=== PATIENT | male | born 1960 | race Caucasian/White ===

== ENCOUNTER 2023-10-19 16:36 | Inpatient (IN) | payer OTHER, MEDICAID ==
[~2023-10-19] VITALS: Ht 180.3 cm; Wt 141.5 kg
[2023-10-19 16:40] VITALS: BP_SYST 153; PULSE 71; RESP 19; TEMP 97.2; O2SAT 96
[2023-10-19 17:41] LABS: BASOPHILS % (AUTO) 0.3 % (0.0-2.0); EOSINOPHILS # (AUTO) 0.4 K/uL (0.0-0.4); EOSINOPHILS % (AUTO) 3.4 % (0.0-4.0); HEMATOCRIT 27.8 % (36-54); HEMOGLOBIN 9.2 g/dL (14.0-18.0); LYMPHOCYTES # (AUTO) 1.8 K/uL (1.0-5.5); LYMPHOCYTES % (AUTO) 15.5 % (20.5-51.5); MEAN CORPUSCULAR HEMOGLOBIN 28 pg (27-31); MEAN CORPUSCULAR HGB CONC 33 % (32-36); MEAN CORPUSCULAR VOLUME 84 fL (79.0-98.0); MONOCYTES # (AUTO) 0.6 K/uL (0.0-1.0); MONOCYTES % (AUTO) 5.1 % (1.7-9.3); NEUTROPHILS # (AUTO) 8.8 K/uL (1.8-7.7); NEUTROPHILS % (AUTO) 75.7 % (40.0-70.0); PLATELET COUNT (AUTO) 142 K/uL (130-430); RED BLOOD CELL COUNT(AUTO) 3.33 MIL/uL (4.2-6.2); RED CELL DISTRIBUTION WIDTH 16.8 % (9.0-15.0); WHITE BLOOD COUNT (AUTO) 11.7 K/uL (4.8-10.8)
[2023-10-19 17:55] LABS: ALANINE AMINOTRANSFERASE 24 U/L (12-78); ALBUMIN 3.2 g/dL (3.4-4.8); ANION GAP 11 (5-15); ASPARTATE AMINOTRANSFERASE 14 U/L (10-37); CALCIUM 8.9 mg/dL (8.4-11.0); CARBON DIOXIDE 19 mmol/L (23-29); CHLORIDE 109 mmol/L (98-107); CREATININE 1.94 mg/dL (0.55-1.30); GFR AFRICAN AMERICAN 45 mL/min (>90); GLUCOSE 148 mg/dL (74-106); POTASSIUM 4.5 mmol/L (3.5-5.1); SODIUM SERUM 139 mmol/L (136-145); TOTAL BILIRUBIN 0.3 mg/dL (0.0-1.0); TOTAL PROTEIN, SERUM 7.1 g/dL (6.4-8.3); UREA NITROGEN, BLOOD 32 mg/dL (8-21)
[2023-10-19 17:58] LABS: BILIRUBIN,DIRECT 0.1 mg/dL (0.0-0.3)
[2023-10-19 18:02] LABS: GFR NON AFRICAN-AMERICAN 37 mL/min (>90)
[2023-10-19 19:54] LABS: BILIRUBIN,URINE NEGATIVE (NEGATIVE); BLOOD, URINE NEGATIVE (NEGATIVE); CLARITY/URINE CLEAR (CLEAR); COLOR,URINE YELLOW (YELLOW); GLUCOSE,URINE 2+ (NEGATIVE); KETONES,URINE NEGATIVE (NEGATIVE); LEUKOCYTE ESTERASE ,URINE NEGATIVE (NEGATIVE); NITRITE, URINE NEGATIVE (NEGATIVE); PROTEIN URINE 1+ (NEGATIVE); UROBILINOGEN,URINE 0.2 (0.2-1.0)
[2023-10-19 20:40] LABS: BACTERIA,URINE None Seen /HPF (None Seen)
[2023-10-19] MEDS: HYDROcodone/ACETAMIN 10-325 MG TAB PO ONE (21:14)
[2023-10-19] MEDS ORDERED: LORazepam 2 MG/ML VIAL IVP PRN (21:15)
[2023-10-19] MEDS ORDERED: ONDANSETRON HCL 4 MG/2 ML VIAL IVP PRN (21:15)
[2023-10-19] MEDS ORDERED: ACETAMINOPHEN 325 MG TABLET PO PRN (21:15)
[2023-10-19] MEDS ORDERED: DEXTROSE 50% JECT 50 ML DISP.SYRIN IVP PRN (21:15)
[2023-10-19] MEDS ORDERED: HYDROcodone/ACETAMIN 5-325 MG TAB (NORCO/ VICODIN) PO PRN (21:15)
[2023-10-19] MEDS ORDERED: hydrALAZINE HCL 25 MG TABLET PO PRN (22:00)
[2023-10-19] MEDS ORDERED: ZOLPIDEM TARTRATE 5 MG TABLET PO PRN (22:00)
[2023-10-20] MEDS ORDERED: DAPA10TA7 (04:21)
[2023-10-20] MEDS ORDERED: ATEN50TA PO (04:21)
[2023-10-20] MEDS ORDERED: LACT10SO7 PO (04:21)
[2023-10-20] MEDS ORDERED: HYDR25TA86 PO (04:21)
[2023-10-20] MEDS ORDERED: EPOE200011 SUBCUT (04:21)
[2023-10-20] MEDS ORDERED: INSU100V46 SUBCUT (04:21)
[2023-10-20] MEDS ORDERED: CLOP75TA32 PO (04:21)
[2023-10-20] MEDS ORDERED: HYDR-4284 PO (04:21)
[2023-10-20] MEDS: HYDROcodone/ACETAMIN 10-325 MG TAB PO PRN (06:53)
[2023-10-20 07:40] LABS: BASOPHILS # (AUTO) 0.1 K/uL (0.0-0.2); BASOPHILS % (AUTO) 0.7 % (0.0-2.0); EOSINOPHILS # (AUTO) 0.4 K/uL (0.0-0.4); EOSINOPHILS % (AUTO) 4.2 % (0.0-4.0); HEMATOCRIT 27.9 % (36-54); LYMPHOCYTES # (AUTO) 1.7 K/uL (1.0-5.5); LYMPHOCYTES % (AUTO) 18.1 % (20.5-51.5); MEAN CORPUSCULAR HEMOGLOBIN 27 pg (27-31); MEAN CORPUSCULAR HGB CONC 32 % (32-36); MEAN CORPUSCULAR VOLUME 85 fL (79.0-98.0); MONOCYTES # (AUTO) 0.5 K/uL (0.0-1.0); NEUTROPHILS # (AUTO) 6.8 K/uL (1.8-7.7); PLATELET COUNT (AUTO) 135 K/uL (130-430); RED CELL DISTRIBUTION WIDTH 16.4 % (9.0-15.0); WHITE BLOOD COUNT (AUTO) 9.4 K/uL (4.8-10.8)
[2023-10-20 07:57] LABS: CALCIUM 8.8 mg/dL (8.4-11.0); CREATININE 1.96 mg/dL (0.55-1.30); POTASSIUM 4.5 mmol/L (3.5-5.1)
[2023-10-20 07:59] LABS: INR 1.1 (0.80-1.20); PROTHROMBIN TIME 10.9 SECS (9.5-12.5)
[2023-10-20] MEDS ORDERED: INSULIN Lispro 100 UNITS/ML, 3 ML VIAL (humaLOG) ONE ×2 (08:08→13:02)
[2023-10-20] MEDS: ATENOLOL 50 MG TABLET (TENORMIN) PO SCH (08:11)
[2023-10-20] MEDS: INSULIN LISPRO SLIDING SCALE 100 UNITS/ML, 3 ML VIAL (humaLOG) SUBCUT PRN (08:13)
[2023-10-20] MEDS ORDERED: ACETAMINOPHEN 325 MG TABLET PO PRN (09:15)
[2023-10-20] MEDS ORDERED: DOCUSATE SODIUM 100 MG CAPSULE PO PRN (09:15)
[2023-10-20] MEDS ORDERED: POTASSIUM CHLORIDE 20 MEQ TABLET.ER PO PRN (09:15)
[2023-10-20] MEDS ORDERED: ONDANSETRON HCL 4 MG/2 ML VIAL IVP PRN (09:15)
[2023-10-20] MEDS ORDERED: MORPHINE 2 MG/ML INJ. SYRINGE IVP PRN ×2 (09:15)
[2023-10-20] MEDS ORDERED: ZOLPIDEM TARTRATE 5 MG TABLET PO PRN (09:15)
[2023-10-20] MEDS ORDERED: NALOXONE HCL 0.4 MG/ML AMP (NARCAN) IVP PRN ×2 (09:15)
[2023-10-20] MEDS ORDERED: MAGNESIUM SULFATE 50 ML IV PRN (09:15)
[2023-10-20] MEDS ORDERED: LORazepam 2 MG/ML VIAL IVP PRN (09:15)
[2023-10-20] MEDS ORDERED: MUPIROCIN 2% TOPICAL OINTMENT 22 GM NS PRN (09:15)
[2023-10-20] MEDS: CLOPIDOGREL BISULFATE 75 MG TABLET PO ONE (11:46)
[2023-10-20 15:25] VITALS: O2SAT 99
[2023-10-20 17:20] VITALS: BP_SYST 123; PULSE 61; RESP 16; TEMP 96
[2023-10-20] MEDS: prednisoLONE 15 MG/5 ML UDC PO ONE (18:36)
[2023-10-20] MEDS: IMMUNE GLOBULIN (IVIG) 400 ML IV SCH (18:42)
[2023-10-20 20:00] VITALS: BP_SYST 126; PULSE 61; RESP 18; TEMP 97.5; O2SAT 96
[2023-10-20] MEDS ORDERED: HEPARIN SODIUM,PORCINE 5,000 UNITS/ML VIAL SUBCUT SCH (21:00)
[2023-10-20] MEDS: APIXABAN 2.5 MG TABLET PO SCH (21:50)
[2023-10-20] MEDS: hydrALAZINE HCL 25 MG TABLET PO SCH (21:52)
[2023-10-21] VITALS: BP_SYST 135; PULSE 67; RESP 18; TEMP 98.5
[2023-10-21 05:03] LABS: BASOPHILS % (AUTO) 0.5 % (0.0-2.0); EOSINOPHILS % (AUTO) 0.1 % (0.0-4.0); HEMATOCRIT 30.4 % (36-54); HEMOGLOBIN 9.7 g/dL (14.0-18.0); LYMPHOCYTES # (AUTO) 0.7 K/uL (1.0-5.5); LYMPHOCYTES % (AUTO) 7.7 % (20.5-51.5); MEAN CORPUSCULAR HEMOGLOBIN 27 pg (27-31); MEAN CORPUSCULAR HGB CONC 32 % (32-36); MEAN CORPUSCULAR VOLUME 85 fL (79.0-98.0); MONOCYTES # (AUTO) 0.1 K/uL (0.0-1.0); MONOCYTES % (AUTO) 1.4 % (1.7-9.3); NEUTROPHILS % (AUTO) 90.3 % (40.0-70.0); PLATELET COUNT (AUTO) 143 K/uL (130-430); RED BLOOD CELL COUNT(AUTO) 3.57 MIL/uL (4.2-6.2); RED CELL DISTRIBUTION WIDTH 16.7 % (9.0-15.0); WHITE BLOOD COUNT (AUTO) 8.8 K/uL (4.8-10.8)
[2023-10-21 05:44] LABS: CALCIUM 8.4 mg/dL (8.4-11.0); CREATININE 2.2 mg/dL (0.55-1.30); POTASSIUM 4.7 mmol/L (3.5-5.1)
[2023-10-21 06:11] LABS: TOTAL IRON BIND. CAPACITY 125 ug/dL (250-450)
[2023-10-21 08:00] VITALS: BP_SYST 119; PULSE 66; RESP 18; TEMP 97.8; O2SAT 96; O2SAT 99
[2023-10-21] MEDS ORDERED: CLOPIDOGREL BISULFATE 75 MG TABLET PO SCH (09:00)
[2023-10-21] MEDS: INSULIN GLARGINE 100 UNITS/ML, 10 ML VIAL SUBCUT SCH (09:41)
[2023-10-21] MEDS: predniSONE 20 MG TABLET PO SCH (09:46)
[2023-10-21 12:14] VITALS: BP_SYST 128; PULSE 68; RESP 17; TEMP 98; O2SAT 98
[2023-10-21 16:24] VITALS: BP_SYST 115; PULSE 67; RESP 18; TEMP 97.7; O2SAT 96
[2023-10-21 20:00] VITALS: BP_SYST 138; PULSE 62; RESP 18; TEMP 98; O2SAT 97
[2023-10-21] MEDS: IMMUNE GLOBULIN (IVIG) 400 ML IV SCH (22:54)
[2023-10-22] VITALS: BP_SYST 118; PULSE 61; RESP 18; TEMP 97.6; O2SAT 100
[2023-10-22 08:00] VITALS: BP_SYST 144; PULSE 82; RESP 12; TEMP 98.6; O2SAT 97
[2023-10-22] MEDS: FOLIC ACID 1 MG TABLET PO SCH (08:49)
[2023-10-22 09:22] VITALS: O2SAT 98
[2023-10-22 11:13] VITALS: BP_SYST 141; PULSE 77; RESP 15; TEMP 97.9; O2SAT 93
[2023-10-22 11:33] LABS: BASOPHILS % (AUTO) 0.5 % (0.0-2.0); EOSINOPHILS # (AUTO) 0.1 K/uL (0.0-0.4); EOSINOPHILS % (AUTO) 1.3 % (0.0-4.0); HEMATOCRIT 28.4 % (36-54); HEMOGLOBIN 9.6 g/dL (14.0-18.0); LYMPHOCYTES # (AUTO) 2.2 K/uL (1.0-5.5); LYMPHOCYTES % (AUTO) 24.7 % (20.5-51.5); MEAN CORPUSCULAR HEMOGLOBIN 28 pg (27-31); MEAN CORPUSCULAR HGB CONC 34 % (32-36); MEAN CORPUSCULAR VOLUME 83 fL (79.0-98.0); MONOCYTES # (AUTO) 0.4 K/uL (0.0-1.0); MONOCYTES % (AUTO) 4.8 % (1.7-9.3); NEUTROPHILS % (AUTO) 68.7 % (40.0-70.0); PLATELET COUNT (AUTO) 147 K/uL (130-430); RED BLOOD CELL COUNT(AUTO) 3.41 MIL/uL (4.2-6.2); RED CELL DISTRIBUTION WIDTH 16.8 % (9.0-15.0); WHITE BLOOD COUNT (AUTO) 8.8 K/uL (4.8-10.8)
[2023-10-22 12:25] LABS: CALCIUM 8.6 mg/dL (8.4-11.0); CREATININE 1.73 mg/dL (0.55-1.30); POTASSIUM 4.3 mmol/L (3.5-5.1)
[2023-10-22 15:12] VITALS: BP_SYST 154; PULSE 60; RESP 16; TEMP 97.8; O2SAT 99
[2023-10-22 20:00] VITALS: BP_SYST 138; PULSE 65; RESP 16; TEMP 97.3; O2SAT 97
[2023-10-23 00:14] VITALS: BP_SYST 136; PULSE 69; RESP 14; TEMP 97.8; O2SAT 96
[2023-10-23 07:15] LABS: BASOPHILS # (AUTO) 0.1 K/uL (0.0-0.2); BASOPHILS % (AUTO) 0.7 % (0.0-2.0); EOSINOPHILS # (AUTO) 0.1 K/uL (0.0-0.4); EOSINOPHILS % (AUTO) 1.6 % (0.0-4.0); HEMATOCRIT 27.2 % (36-54); HEMOGLOBIN 9.2 g/dL (14.0-18.0); LYMPHOCYTES # (AUTO) 2.2 K/uL (1.0-5.5); MEAN CORPUSCULAR HEMOGLOBIN 28 pg (27-31); MEAN CORPUSCULAR HGB CONC 34 % (32-36); MEAN CORPUSCULAR VOLUME 83 fL (79.0-98.0); MONOCYTES # (AUTO) 0.5 K/uL (0.0-1.0); MONOCYTES % (AUTO) 5.9 % (1.7-9.3); NEUTROPHILS # (AUTO) 6.2 K/uL (1.8-7.7); NEUTROPHILS % (AUTO) 67.8 % (40.0-70.0); PLATELET COUNT (AUTO) 163 K/uL (130-430); RED BLOOD CELL COUNT(AUTO) 3.27 MIL/uL (4.2-6.2); RED CELL DISTRIBUTION WIDTH 16.3 % (9.0-15.0); WHITE BLOOD COUNT (AUTO) 9.1 K/uL (4.8-10.8)
[2023-10-23 07:19] LABS: CALCIUM 8.4 mg/dL (8.4-11.0); CREATININE 1.88 mg/dL (0.55-1.30); POTASSIUM 4.6 mmol/L (3.5-5.1)
[2023-10-23 08:27] VITALS: BP_SYST 132; PULSE 61; RESP 16; TEMP 97.1; O2SAT 99
[2023-10-23 10:30] VITALS: O2SAT 99
[2023-10-23 12:44] VITALS: BP_SYST 135; PULSE 94; RESP 15; TEMP 97.4; O2SAT 97
[2023-10-23 16:39] VITALS: BP_SYST 133; PULSE 62; RESP 17; TEMP 97.2; O2SAT 98
[2023-10-23 20:00] VITALS: BP_SYST 147; PULSE 61; RESP 18; TEMP 98.6; O2SAT 99
[2023-10-24] VITALS (7 sets, daily range): BP systolic 115–158; PULSE 52–62; RESP 16–18; TEMP 97.3–98.8; O2SAT 95–100
[2023-10-24 06:30] LABS: BASOPHILS % (AUTO) 0.4 % (0.0-2.0); EOSINOPHILS # (AUTO) 0.1 K/uL (0.0-0.4); EOSINOPHILS % (AUTO) 0.9 % (0.0-4.0); HEMATOCRIT 27.6 % (36-54); HEMOGLOBIN 9.2 g/dL (14.0-18.0); LYMPHOCYTES # (AUTO) 2.1 K/uL (1.0-5.5); LYMPHOCYTES % (AUTO) 22.4 % (20.5-51.5); MEAN CORPUSCULAR HEMOGLOBIN 28 pg (27-31); MEAN CORPUSCULAR HGB CONC 33 % (32-36); MEAN CORPUSCULAR VOLUME 83 fL (79.0-98.0); MONOCYTES # (AUTO) 0.5 K/uL (0.0-1.0); MONOCYTES % (AUTO) 5.6 % (1.7-9.3); NEUTROPHILS # (AUTO) 6.8 K/uL (1.8-7.7); NEUTROPHILS % (AUTO) 70.7 % (40.0-70.0); PLATELET COUNT (AUTO) 176 K/uL (130-430); RED BLOOD CELL COUNT(AUTO) 3.32 MIL/uL (4.2-6.2); RED CELL DISTRIBUTION WIDTH 16.6 % (9.0-15.0); WHITE BLOOD COUNT (AUTO) 9.6 K/uL (4.8-10.8)
[2023-10-24 06:35] LABS: CALCIUM 8.2 mg/dL (8.4-11.0); CREATININE 1.72 mg/dL (0.55-1.30); POTASSIUM 4.3 mmol/L (3.5-5.1)
[2023-10-25] VITALS: BP_SYST 149; PULSE 60; RESP 20; TEMP 97.8
[2023-10-25 07:30] VITALS: O2SAT 95
[2023-10-25 07:51] LABS: BASOPHILS # (AUTO) 0.1 K/uL (0.0-0.2); BASOPHILS % (AUTO) 0.6 % (0.0-2.0); EOSINOPHILS # (AUTO) 0.1 K/uL (0.0-0.4); EOSINOPHILS % (AUTO) 0.8 % (0.0-4.0); HEMATOCRIT 29.5 % (36-54); HEMOGLOBIN 9.7 g/dL (14.0-18.0); LYMPHOCYTES # (AUTO) 2.9 K/uL (1.0-5.5); MEAN CORPUSCULAR HEMOGLOBIN 27 pg (27-31); MEAN CORPUSCULAR HGB CONC 33 % (32-36); MEAN CORPUSCULAR VOLUME 83 fL (79.0-98.0); MONOCYTES # (AUTO) 0.8 K/uL (0.0-1.0); MONOCYTES % (AUTO) 6.4 % (1.7-9.3); NEUTROPHILS # (AUTO) 8.7 K/uL (1.8-7.7); NEUTROPHILS % (AUTO) 69.2 % (40.0-70.0); PLATELET COUNT (AUTO) 190 K/uL (130-430); RED BLOOD CELL COUNT(AUTO) 3.55 MIL/uL (4.2-6.2); RED CELL DISTRIBUTION WIDTH 16.5 % (9.0-15.0); WHITE BLOOD COUNT (AUTO) 12.6 K/uL (4.8-10.8)
[2023-10-25 08:05] VITALS: BP_SYST 122; PULSE 55; RESP 18; TEMP 97.4; O2SAT 95
[2023-10-25 08:06] LABS: CALCIUM 8.8 mg/dL (8.4-11.0); CREATININE 1.55 mg/dL (0.55-1.30); POTASSIUM 4.1 mmol/L (3.5-5.1)
[2023-10-25 11:07] VITALS: BP_SYST 153; PULSE 60; RESP 16; TEMP 97.6; O2SAT 100
== END 2023-10-25 12:30 | DRG 74 ==
LOC: SED 16:36 → SMU 21:02
PROVIDERS: ADMIT Internal Medicine; ATTEND Internal Medicine
DX: G61.81 Chronic inflammatory demyelinating polyneuritis (principal); I82.512 Chronic embolism and thrombosis of left femoral vein; N17.9 Acute kidney failure, unspecified; E66.01 Morbid (severe) obesity due to excess calories; D50.9 Iron deficiency anemia, unspecified; I12.9 Hypertensive chronic kidney disease with stage 1 through stage 4 chronic kidney disease, or unspecified chronic kidney disease; E11.42 Type 2 diabetes mellitus with diabetic polyneuropathy; Z20.822 Contact with and (suspected) exposure to COVID-19; N18.9 Chronic kidney disease, unspecified; Z79.899 Other long term (current) drug therapy
CPT/HCPCS: 36415; 71045; 76770; 80048; 80076; 81000; 81001; 81015; 82948; 83037; 83540; 83550; 83735; 84484; 85025; 85610; 85730; 86886; 86900; 86901; 87081; 93005; 93970; 97110-GP; 97112-GP; 97163-GP; 97530-GP; 99285; J1561; J1815; J7512